=== PATIENT | female | born 1990 | race Caucasian/White ===

== ENCOUNTER 2018-05-13 13:39 | Emergency (ER) | payer OTHER ==
[~2018-05-13] VITALS: Ht 160 cm; Wt 143.8 kg
[~2018-05-13 13:39] MED LIST: CEPH250C16 PO; PAX20 PO; SULF-58 PO
[2018-05-13 13:44] VITALS: BP 127/73
--- NOTE | 2018-05-13 13:56 | NUR ---
C/O RINGING ON LT EAR X 1 WK; TREATED AT [facility] IN [place] LAST WEEK FOR RT EAR INFECTION WITH AMOXICILIN AND CLARITIN; DENIES PAIN HX; ANXIETY RX; ZOLOFT, CLONIPIN
--- NOTE | 2018-05-13 14:55 | NUR ---
PT RESTING COMFORTABLY IN [facility] AT THIS TIME W/ VSS AND RR EVEN AND AND UNLABORED. PT NEEDS MET, SAFETY PRECAUTIONS IN PLACE. WILL CONTINUE TO MONITOR.
--- NOTE | 2018-05-13 15:50 | NUR ---
pt resting comfortably in [facility] at this time w/ vss, rr even and unlabored. pt needs met, safety precautions in place. will continue to monitor.
--- NOTE | 2018-05-13 16:38 | NUR ---
pt awaiting d/c [facility] at this time. vss, rr even and unlabored. safety precautions in place. will continue to monitor.
[2018-05-13 17:41] VITALS: BP 119/69
--- NOTE | 2018-05-13 17:42 | NUR ---
Patient discharged with v/s stable. Written and verbal after care instructions given and explained. Patient alert, oriented and verbalized understanding of instructions. Ambulatory with steady gait. All questions addressed prior to discharge. ID band removed. Patient advised to follow up with PMD. Rx of Prednisone and Meclizine given. Patient educated on indication of medication including possible reaction and side effects. Opportunity to ask questions provided and answered.
== END 2018-05-13 17:42 | disposition home or self-care (01) ==
LOC: MED 13:39
DX: H93.12 Tinnitus, left ear (principal); H65.91 Unspecified nonsuppurative otitis media, right ear; Z79.899 Other long term (current) drug therapy
CPT/HCPCS: 99283